=== PATIENT | female | born 1985 | race Caucasian/White ===

== ENCOUNTER 2018-02-01 17:10 | Emergency (ER) | payer BC ==
[2018-02-01 17:37] VITALS: O2SAT 100
--- NOTE | 2018-02-01 17:49 | C.PDOC ---
History Of Present Illness 32 year old female who is [id number] 16-17 weeks presents to the ER after having an episode of suprapubic pain and vaginal bleeding. Patient reports she felt mild suprapubic discomfort this afternoon that lasted for 5 minutes, she went to urinate and noticed she passed bright red blood. Patient brought a picture with her that showed a small amount of coagulated blood; she reports the has been unremarkable until this point. Denies vaginal discharge or any pain since the episode. Time Seen by Provider: 02/01/18 17:22 Chief Complaint (Nursing): Female Genitourinary History Per: Patient History/Exam Limitations: no limitations Onset/Duration Of Symptoms: Mins Current Symptoms Are (Timing): Gone Quality Of Discomfort: Unable To Describe Associated Symptoms: denies: Fever, Chills Alleviating Factors: None Recent travel outside of the [place]: No Abnormal Vaginal Bleeding: Yes Past Medical History Reviewed: Historical Data, Nursing Documentation, Vital Signs Vital Signs: Last Vital Signs Temp 98.1 F 02/01/18 17:17 Pulse 101 H 02/01/18 17:17 Resp 18 02/01/18 17:17 BP 142/84 02/01/18 17:17 Pulse Ox 100 02/01/18 20:13 Family History: States: Unknown Family Hx - Social History Hx Alcohol Use: No Hx Substance Use: No Review Of Systems Constitutional: Negative for: Fever, Chills Cardiovascular: Negative for: Light Headedness Gastrointestinal: Positive for: Abdominal Pain (Suprapubic) Genitourinary: Positive for: Vaginal Bleeding. Negative for: Vaginal Discharge Neurological: Negative for: Dizziness Physical Exam - Physical Exam Appears: Non-toxic, No Acute Distress Skin: Normal Color, Warm, Dry Head: Atraumatic, Normacephalic Eye(s): bilateral: Normal Inspection Oral Mucosa: Moist Chest: Symmetrical, No Tenderness Cardiovascular: Rhythm Regular Respiratory: Normal Breath Sounds, No Rales, No Rhonchi, No Wheezing Gastrointestinal/Abdominal: Soft, No Tenderness, Other (Uterus palpable 3-4cm below umbilicus) Pelvic: Other (Pelvic deferred) Neurological/Psych: Oriented x3, Normal Speech ED Course And Treatment - Laboratory Results Result Diagrams: 02/01/18 18:07 02/01/18 18:07 Lab Interpretation: No Acute Changes Interpretation Of Abnormal: Blood type 0+ O2 Sat by Pulse Oximetry: 100 (Room air) Pulse Ox Interpretation: Normal - CT Scan/US Pelvic ultrasound Other Rad Studies (CT/US): Read By Radiologist, Radiology Report Reviewed CT/US Interpretation: Accession No. : [id number]. Patient Name / ID : LEONOR OLVERA / [id number]. Exam Date : 02/01/2018 18:47:43 ( Approved ). Study Comment : Sex / Age : F / 32Y. Creator : BREA FIGUEROA. Dictator : Maintenance Shop Laborer : Certified Income Tax Preparer : BREA FIGUEROA. Approver2 : Report Date : 02/01/2018 20:00:00. My Comment : . [facility] Division of Radiology. [address] [place] [address]. Tel. no. . . . Patient Name: WADE GALVEZ . Pt. Address: [address] [place] [address]. Rec #: [id number]. [place] [address]: Luis Miguel MARCANO, Scarlet Garcia. Pt Order Location: [facility] : 1985 Female Age: 32 Order #: [id number]. Reason for exam: 16wk preg with vaginal bleeding. . . . . . Ultrasound. . . OB , LIMITED Exam Date: 02/01/18. . This imaging exam was performed at [facility]. EXAM: US Uterus, Limited. . EXAM DATE/TIME: Exam ordered 02/01/2018 5:41 PM. . CLINICAL HISTORY: 32 years old, female; Signs and symptoms; Lmp or gestational age (in weeks): 10/11/2017; Other: Vaginal bleeding; ; Additional info: 16wk preg with. vaginal bleeding. . TECHNIQUE: Real-time ultrasound of the maternal uterus (limited) with image. documentation. . COMPARISON: No relevant prior studies available. . FINDINGS: Fetus: There is a single intrauterine . Cervix: The cervix measures 4 cm in length. It was closed at the time of the. study. Adnexa: The right ovary measures 3.2 x 2.7 x 3 point 6 cm. Blood flow seen. in the right ovary on color Doppler examination. The left ovary measures 2.8 x. 1.7 x 2.5 cm. Blood flow is seen in the left ovary on color Doppler examination. . ultrasound: Biometry. . BPD = [3.2 cm]; Estimated Menstrual Age = [16 w 0 d]; Range = [14 W6D-17 W1D]. HC = [11.98 cm] ; Estimated Menstrual Age = [16 w 0 d]; Range = [14 W5D-17 W1D]. AC = [8.96 cm] ; Estimated Menstrual Age = [15 w 1 d]; Range = [13 W4D-16 W6 D]. FL = [2 cm]; Estimated Menstrual Age = [16 w 0 d]; Range = [14 W4D-17 W2D]. . HC/AC Ratio = [1.34] normal 1.06-1.35. . EFW = 129.6 g plus or -19 g (5 ounces plus or minus one ounce) 13.6 percentile. . Amniotic fluid volume: Qualitatively normal. . Placenta: Posterior asymmetric complete previa. . Presentation: Vertex. . HR =[132 bpm]. . Survey. . Stomach [Normal]. Bladder [ Normal]. 4 extremities [Normal]. Abdominal CORD insertion (normal). 3 vessel cord (normal). . IMPRESSION: 1. Single live intrauterine with an estimated menstrual age of 15. weeks and 6 days plus or minus one week and one day. Expected date of delivery. 07/20/2018. . 2. Posterior placenta with asymmetric complete previa. . 3. incomplete survey due to early gestational age. . Dictated By: Brea Figueroa MD. Dictated Date/Time: 02/01/181999. Signed By: Brea Figueroa MD. Date Signed: 02/01/181999. Transcribed By: [facility]. Transcribe Date/Time: 02/01/181999. CURTBMD/MT Progress Note: Blood work, urinalysis, and pelvic US ordered. Reevaluation Time: 20:13 Reassessment Condition: Unchanged - Physician Consult Information Time Consulting Physician Contacted: 20:13 Physician Contacted: Carol Stoner Outcome Of Conversation: Case discussed with Dr Giordano. Patient to remain off work and avoid sexual intercourse. She should follow up with Dr Stoner next week. Disposition Counseled Patient/Family Regarding: Studies Performed, Diagnosis, Need For Followup - Disposition Referrals: Carol Stoner MD [Staff Provider] - Disposition: HOME/ ROUTINE Disposition Time: 20:29 Condition: STABLE Instructions: Placenta Previa Forms: Stoke (Persian) - Clinical Impression Clinical Impression: Placenta previa - Scribe Statement The provider has reviewed the documentation as recorded by the Scribe Darius Perez All medical record entries made by the Scribe were at my direction and personally dictated by me. I have reviewed the chart and agree that the record accurately reflects my personal performance of the history, physical exam, medical decision making, and the department course for this patient. I have also personally directed, reviewed, and agree with the discharge instructions and disposition.
[2018-02-01 18:12] LABS: BASO # 0.1 K/uL (0.0-0.2); BASO % 0.9 % (0.0-2.0); EOS # 0.1 K/uL (0.0-0.7); EOS % 0.8 % (0.0-4.0); HEMOGLOBIN 11.9 g/dL (11.0-16.0); LYMPH # 2.5 K/uL (1.0-4.3); LYMPH % 21.1 % (20.0-40.0); MEAN CELL VOLUME 82.5 fL (81.0-99.0); MEAN CORPUSCULAR HEMOGLOBIN 27.4 pg (27.0-31.0); MEAN CORPUSCULAR HGB CONC 33.2 g/dL (33.0-37.0); MEAN PLATELET VOLUME 15.9 fL (7.2-11.7); MONO % 8.6 % (0.0-10.0); NEUT % 68.6 % (50.0-75.0); RBC 4.34 Mil/uL (3.80-5.20); RED CELL DISTRIBUTION WIDTH 14.4 % (11.5-14.5); WHITE BLOOD COUNT 11.6 K/uL (4.8-10.8)
[2018-02-01 18:16] LABS: SQUAMOUS EPITHIAL 2 /hpf (0-5); URINE BILIRUBIN NEGATIVE (NEGATIVE); URINE BLOOD 2+ (NEGATIVE); URINE CLARITY Clear (Clear); URINE COLOR Straw (YELLOW); URINE GLUCOSE (UA) NORMAL (Normal); URINE LEUKOCYTE ESTERASE NEG Leu/uL (Negative); URINE PROTEIN NEGATIVE (NEGATIVE); URINE UROBILINOGEN NORMAL mg/dL (0.2-1.0)
[2018-02-01 18:20] LABS: PLATELET COUNT 62 K/uL (130-400)
[2018-02-01 18:29] LABS: ALBUMIN 4.3 g/dL (3.5-5.0); ALT/SGPT 59 U/L (9-52); AST/SGOT 40 U/L (14-36); BLOOD UREA NITROGEN 8 mg/dL (7-17); CALCIUM 9.8 mg/dl (8.6-10.4); GFR AFRICAN-AMERICAN > 60; GFR NON-AFRICAN AMERICAN > 60
--- NOTE | 2018-02-01 20:00 | US ---
EXAM: US Uterus, Limited EXAM DATE/TIME: Exam ordered 02/01/2018 5:41 PM CLINICAL HISTORY: 32 years old, female; Signs and symptoms; Lmp or gestational age (in weeks): 10/11/2017; Other: Vaginal bleeding; ; Additional info: 16wk preg with vaginal bleeding TECHNIQUE: Real-time ultrasound of the maternal uterus (limited) with image documentation. COMPARISON: No relevant prior studies available. FINDINGS: Fetus: There is a single intrauterine . Cervix: The cervix measures 4 cm in length. It was closed at the time of the study. Adnexa: The right ovary measures 3.2 x 2.7 x 3 point 6 cm. Blood flow seen in the right ovary on color Doppler examination. The left ovary measures 2.8 x 1.7 x 2.5 cm. Blood flow is seen in the left ovary on color Doppler examination. ultrasound: Biometry BPD = [3.2 cm]; Estimated Menstrual Age = [16 w 0 d]; Range = [14 W6D-17 W1D] HC = [11.98 cm]; Estimated Menstrual Age = [16 w 0 d]; Range = [14 W5D-17 W1D] AC = [8.96 cm]; Estimated Menstrual Age = [15 w 1 d]; Range = [13 W4D-16 W6 D] FL = [2 cm]; Estimated Menstrual Age = [16 w 0 d]; Range = [14 W4D-17 W2D] HC/AC Ratio = [1.34] normal 1.06-1.35 EFW = 129.6 g plus or -19 g (5 ounces plus or minus one ounce) 13.6 percentile Amniotic fluid volume: Qualitatively normal Placenta: Posterior asymmetric complete previa Presentation: Vertex HR =[132 bpm] Survey Stomach [Normal] Bladder [Normal] 4 extremities [Normal] Abdominal CORD insertion (normal) 3 vessel cord (normal) IMPRESSION: 1. Single live intrauterine with an estimated menstrual age of 15 weeks and 6 days plus or minus one week and one day. Expected date of delivery 07/20/2018 2. Posterior placenta with asymmetric complete previa 3. incomplete survey due to early gestational age.
[2018-02-01 20:52] VITALS: BP 114/70; PULSE 74; RESP 16; TEMP 97.6
== END 2018-02-01 20:51 | disposition home or self-care (01) ==
LOC: C.ER 17:10 → EDSEX 17:10 → C.ER 20:51
DX: O44.02 Complete placenta previa NOS or without hemorrhage, second trimester (principal); Z3A.15 15 weeks gestation of pregnancy

== ENCOUNTER 2018-06-24 12:29 | Emergency (ER) | payer BC ==
[2018-06-24 13:51] LABS: BASO # 0.1 K/uL (0.0-0.2); EOS % 0.5 % (0.0-4.0); HEMOGLOBIN 12.1 g/dL (11.0-16.0); MEAN CORPUSCULAR HGB CONC 33.7 g/dL (33.0-37.0); MONO # 0.6 K/uL (0.0-0.8); NEUT # 6.1 K/uL (1.8-7.0); WHITE BLOOD COUNT 8.9 K/uL (4.8-10.8)
[2018-06-24 14:04] LABS: ALB/GLOB RATIO 1.1 (1.0-2.1); ALBUMIN 3.6 g/dL (3.5-5.0); ALT/SGPT 36 U/L (9-52); AST/SGOT 39 U/L (14-36); BILIRUBIN,DIRECT 0.2 mg/dL (0.0-0.4); BLOOD UREA NITROGEN 8 mg/dL (7-17); CALCIUM 9.4 mg/dl (8.6-10.4); GFR AFRICAN-AMERICAN > 60; GFR NON-AFRICAN AMERICAN > 60; INR 0.9; PROTHROMBIN TIME 9.9 SECONDS (9.7-12.2); URIC ACID 5.3 mg/dL (2.2-7.5)
[2018-06-24 14:09] LABS: BASO % 0.6 % (0.0-2.0); LYMPH # 2.2 K/uL (1.0-4.3); LYMPH % 24.3 % (20.0-40.0); MEAN PLATELET VOLUME 11.4 fL (7.2-11.7); MONO % 6.3 % (0.0-10.0); NEUT % 68.3 % (50.0-75.0); RBC 4.18 Mil/uL (3.80-5.20); RED CELL DISTRIBUTION WIDTH 13.5 % (11.5-14.5)
[2018-06-24 14:10] LABS: MEAN CELL VOLUME 86.1 fL (81.0-99.0)
[2018-06-24 14:20] LABS: CREATININE, RANDOM URINE 35.5 mg/dL
--- NOTE | 2018-06-24 19:36 | C.PDOC ---
History Of Present Illness 33 yo woman , [id number] weeks , admitted by licensed final expense agents for dropping platelet counts and high blood pressure in the office.after admission showed normal blood pressures, he patient has a history of ITP, first diagnosed 2 years before the , never required treatment before. She has been asymptomatic with her baseline counts around 50k, which has dropped now to 30K. The work up for preeclampsia and HELLP syndrome have been normal/negative. The patient is completely asymptomatic, no bleeding, headaches, dysuria T Past Medical History Family History: States: Unknown Family Hx - Social History Hx Alcohol Use: No Hx Substance Use: No ED Course And Treatment - Laboratory Results Result Diagrams: 06/24/18 13:46 06/24/18 13:46 Medical Decision Making Medical Decision Makin yo woman 36 weeks , with a hostory of ITP, admitted for dropping platelet counts and remains asymptomatic. Will start steroids, Prednisone 20md BID and recheck counts in 5-6 days. If counts increase satisfactorily, will continue and the patient can admitted the day of the delivery. If the counts remain lower than 80K, she needs to be admitted the night before for iv steroids and platelet transfusion
--- NOTE | 2018-06-25 12:51 | OBHP ---
Datetime: 06/24/2018 20:16 IP Adm Impression: , intrauterine IP Admit Plan: Observation/Evaluation Admit Comment, IP Provider: 33 y/o at 36 + wks presents from the PMD's office with elevated BP in the office. Pt has no c/o ctx, Vb or LOF. + FM. Pt has no c/o CP, SOB, RUQ , or visual changes. Pt givens a h/o ITP. BP- as documented. Labd: AST slightly elevated. PLTS- 31. Dr Stoner was called at this time and Dr Stoner took over the management from this time. Pt was evaluated by Dr Stoner and hematology called. Please refer to Dr Stoner and Hematology consult for further management. Pelvic Type - PN: Adequate Extremities - PN: Normal Abdomen - PN: Normal Back - PN: Normal Breast - PN: Normal Lungs - PN: Normal Heart - PN: Normal Thyroid - PN: Normal Neurologic - PN: Normal HEENT - PN: Normal General - PN: Normal EGA AdmitDate IP: 36.5 IP Chief Complaint: Signs/Symptoms Gestational HTN NICHD Variability Prov Fetus A: Moderate 6-25bpm NICHD Accel Fetus A IP Provider: [id number] NICHD Decel Fetus A IP Provider: None Genitourinary Exam: Normal DTRs - PN: Normal
[2018-06-25 16:50] VITALS: BP 129/70; PULSE 75
== END 2018-06-24 19:10 | disposition home or self-care (01) ==
LOC: C.EROB 12:29
DX: O26.893 Other specified pregnancy related conditions, third trimester (principal); Z3A.36 36 weeks gestation of pregnancy; R03.0 Elevated blood-pressure reading, without diagnosis of hypertension; D69.3 Immune thrombocytopenic purpura

== ENCOUNTER 2018-06-30 16:30 | Inpatient (IN) | payer BC ==
[2018-06-30 17:43] LABS: SQUAMOUS EPITHIAL 5 /hpf (0-5); URINE BACTERIA OCC (<OCC); URINE BILIRUBIN NEGATIVE (NEGATIVE); URINE BLOOD NEGATIVE (NEGATIVE); URINE CLARITY Clear (Clear); URINE COLOR Colorless (YELLOW); URINE GLUCOSE (UA) NORMAL (Normal); URINE LEUKOCYTE ESTERASE NEG Leu/uL (Negative); URINE PROTEIN NEGATIVE (NEGATIVE); URINE UROBILINOGEN NORMAL mg/dL (0.2-1.0)
--- NOTE | 2018-06-30 17:57 | CP.PCM.HP ---
History of Present Illness - History of Present Illness History of Present Illness: OB H&P PGY-[address] Sampson service Patient is a 33 year old female, @ 37 weeks that was sent from Bid Clerk/oncologist Dr. Racheal Quintero office for low platelets level results. Patient was seen in the hospital on 06/24/2018 due to high blood pressure noted in BUSINESS INTERN Doctor Cherise Stoner office. Platelets during that time were 31,000 uL Platelet and was given prednisone 20mg one tablet twice a day, which she took since Saturday until this morning. At Dr. Quintero office patient's platelet level was 4,000 uL and was sent from office to the hospital for further evaluation. Patient has no complains. Patient denies any complications in . Patient denies having any contractions. Patient denies any vaginal bleeding or rupture of membrane. Patient has movement happening 4 to 5 times a day. Patient denies any changes in her since last time seen in the hospital. Patient denies fever, chills, chest pain, shortness of breath, bruising, abnormal bleeding, abdominal pain, nausea, vomiting, diarrhea or constipation. 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, denies alcohol, works as a banker ROS: as noted in HPI Present on Admission - Present on Admission Any Indicators Present on Admission: No History of DVT/PE: No History of Uncontrolled Diabetes: No Urinary Catheter: No Decubitus Ulcer Present: No Review of Systems - Constitutional Constitutional: absent: Chills, Fever, Headache - EENT Eyes: absent: Change in Vision Nose/Mouth/Throat: absent: Bleeding Gums - Cardiovascular Cardiovascular: absent: Chest Pain, Edema, Leg Edema, Lightheadedness - Respiratory Respiratory: absent: Dyspnea - Gastrointestinal Gastrointestinal: absent: Abdominal Pain, Diarrhea, Nausea, Vomiting - Musculoskeletal Musculoskeletal: absent: Back Pain - Integumentary Integumentary: absent: Bleeding Lesions - Neurological Neurological: absent: Headaches, Syncope, Weakness - Hematologic/Lymphatic Hematologic: absent: Easy Bleeding, Easy Bruising Past Patient History - Past Social History Smoking Status: Never Smoked - PSYCHIATRIC Hx Substance Use: No - SURGICAL HISTORY Hx Surgeries: No - ANESTHESIA Hx Anesthesia: No Meds Allergies/Adverse Reactions: Allergies Allergy/AdvReac Type Severity Reaction Status Date / Time No Known Allergies Allergy Verified 02/01/18 17:19 Physical Exam - Constitutional Appears: Non-toxic, No Acute Distress - Head Exam Head Exam: ATRAUMATIC, NORMAL INSPECTION, NORMOCEPHALIC - Eye Exam Eye Exam: EOMI, Normal appearance - ENT Exam ENT Exam: Mucous Membranes Moist, Normal Exam - Neck Exam Neck exam: Positive for: Normal Inspection - Respiratory Exam Respiratory Exam: Clear to Auscultation Bilateral, NORMAL BREATHING PATTERN. absent: Rales, Rhonchi, Wheezes - Cardiovascular Exam Cardiovascular Exam: Tachycardia, REGULAR RHYTHM, +S1, +S2 - GI/Abdominal Exam GI & Abdominal Exam: Normal Bowel Sounds - Extremities Exam Extremities exam: Positive for: full ROM, normal inspection. Negative for: pedal edema, tenderness - Back Exam Back exam: NORMAL INSPECTION - Neurological Exam Neurological exam: Alert - Psychiatric Exam Psychiatric exam: Normal Affect, Normal Mood - Skin Skin Exam: Intact, Normal Color, Warm Assessment & Plan - Assessment and Plan (Free Text) Plan: 1. Thrombocytopenia -06/30/2018 Platelets level @ Heme/Onc office: 4, 000 - Hematology/Oncology Consult Dr Racheal Quintero - type and Screen - ordered - Follow up Heme/Onc recs on platelet transfusion - Start on Regular diet 2. Hx of High blood pressure in - At Dr. Quintero office: Work up for HELLP/eclampsia is negative - Check vitals Q4hrs -current BP ranges from 133/81- 143/90 - check Monitor Cont - 06/30/2018 Urinalysis - Urine protein negative Plan was discussed with MD Griffin Brice, PGY-1 - Date & Time Date: 06/30/18 Time: 18:10
[2018-06-30] MEDS ORDERED: MethylPREDNISolone 40 mg Vial IVP ONE (19:45)
--- NOTE | 2018-06-30 19:56 | CP.PCM.CON ---
History of Present Illness - History of Present Illness History of Present Illness: 33 yo woman 36 weeks gestation, admitted from the office when she was found to have low platelet counts. The patient was diagnosed with ITP at the beginning of her , when she was found to have low platelet counts. The patient says that she was found to have low platelet counts 2 years ago and had an extensive work up and was told that it was consistent with ITP. she has not had any episodes of easy bleeding or bruising. She gives a history of her sister having the similar problems with her platelet count. The patient had work up for TTP/HELLP/Eclampsia showing normal LFTs, normal coags, LDH and fibrinogen levels, no HTN or proteinuria Past Patient History - Past Social History Smoking Status: Never Smoked - PSYCHIATRIC Hx Substance Use: No - SURGICAL HISTORY Hx Surgeries: No - ANESTHESIA Hx Anesthesia: No Meds Allergies/Adverse Reactions: Allergies Allergy/AdvReac Type Severity Reaction Status Date / Time No Known Allergies Allergy Verified 02/01/18 17:19 - Medications Medications: Current Medications Famotidine (Pepcid) 20 mg IVP Q12 KAYLIE Results - Labs Labs: Laboratory Results - last 24 hr 06/30/18 06/30/18 17:26 18:26 Urine Color Colorless Urine Clarity Clear Urine pH 7.0 Ur Specific [place] 1.003 Urine Protein Negative Urine Glucose (UA) Normal Urine Ketones Negative Urine Blood Negative Urine Nitrate Negative Urine Bilirubin Negative Urine Urobilinogen Normal Ur Leukocyte Esterase Neg Urine WBC (Auto) < 1 Urine RBC (Auto) < 1 Ur Squamous Epith Cells 5 Ur Transition Epith Cell < 1 Urine Bacteria Occ H Blood Type O POSITIVE Antibody Screen Negative Assessment & Plan (1) Thrombocytopenia affecting , antepartum Assessment and Plan: 33 yo woman with a pre diagnosis of ITP as per patient, decreasing counts in the last trimester with poor response to steroids,normal WBC abd RBC counts, asymptomatic, will need platelet transfusion Status: Acute
[2018-06-30 19:57] LABS: BASO # 0.1 K/uL (0.0-0.2); BASO % 0.7 % (0.0-2.0); HEMOGLOBIN 12.3 g/dL (11.0-16.0); LYMPH # 2.4 K/uL (1.0-4.3); LYMPH % 16.1 % (20.0-40.0); MEAN CELL VOLUME 86.9 fL (81.0-99.0); MEAN CORPUSCULAR HEMOGLOBIN 28.7 pg (27.0-31.0); MEAN PLATELET VOLUME 12.3 fL (7.2-11.7); MONO % 7.1 % (0.0-10.0); NEUT # 11.3 K/uL (1.8-7.0); NEUT % 76.1 % (50.0-75.0); NRBC % 0.3 % (0.0-2.0); RBC 4.29 Mil/uL (3.80-5.20); RED CELL DISTRIBUTION WIDTH 13.4 % (11.5-14.5)
[2018-06-30 20:04] LABS: WHITE BLOOD COUNT 14.8 K/uL (4.8-10.8)
--- NOTE | 2018-06-30 20:14 | OBHP ---
Datetime: 06/30/2018 19:55 IP Chief Complaint Other: thrombocytopenia Admit Comment, IP Provider: Patient is a 33 year old female, edc 07/17/18 by 1st trim us @ 37 weeks that was sent from Senior Manufacturing Test Engineer/oncologist Dr. Racheal Quintero office for low platelets level results. Patient was seen in the hospital on 06/24/2018 due to high blood pressure noted in ELECTRONICS HARDWARE DESIGN ENGINEER D geovany Scott office. Platelets during that time were 31,000 uL Platelet and was given prednison e 20mg one tablet twice a day, which she took since last Saturday(past 5days) until this morning. At Dr. Quintero office today patient's platelet level was 4,000 uL. Pt was sent from office to the h ospital for further evaluation and management. Patient has no complains. Patient denies any complicat ions in . Patient denies having any contractions. Patient denies any vaginal bleeding or rup ture of membrane. Patient has movement happening 4 to 5 times a day. Patient denies any changes in her since last time seen in the hospital. Patient denies fever, chills, chest pain, nena rtness of breath, bruising, abnormal bleeding, abdominal pain, nausea, vomiting, diarrhea or constipa tion. 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, denies alcohol, works as a banker ROS: as noted in HPI Present on Admission History of Uncontrolled Diabetes: No Urinary Catheter: No Decubitus Ulcer Present: No Review of Systems - Constitutional Constitutional: absent: Chills, Fever, Headache - EENT Eyes: absent: Change in Vision Nose/Mouth/Throat: absent: Bleeding Gums - Cardiovascular Cardiovascular: absent: Chest Pain, Edema, Leg Edema, Lightheadedness - Respiratory Respiratory: absent: Dyspnea - Gastrointestinal Gastrointestinal: absent: Abdominal Pain, Diarrhea, Nausea, Vomiting - Musculoskeletal Musculoskeletal: absent: Back Pain - Integumentary Integumentary: absent: Bleeding Lesions - Neurological Neurological: absent: Headaches, Syncope, Weakness - Hematologic/Lymphatic Hematologic: absent: Easy Bleeding, Easy Bruising Past Patient History - Past Social History Smoking Status: Never Smoked - PSYCHIATRIC Hx Substance Use: No - SURGICAL HISTORY Hx Surgeries: No - ANESTHESIA Hx Anesthesia: No Meds No Known [id number]/24/18 17:19 Physical Exam - Constitutional Appears: Non-toxic, No Acute Distress - Head Exam Head Exam: ATRAUMATIC, NORMAL INSPECTION, NORMOCEPHALIC - Eye Exam Eye Exam: EOMI, Normal appearance - ENT Exam ENT Exam: Mucous Membranes Moist, Normal Exam - Neck Exam Neck exam: Positive for: Normal Inspection - Respiratory Exam Respiratory Exam: Clear to Auscultation Bilateral, NORMAL BREATHING PATTERN. absent: Rales, Rhonc hi, Wheezes - Cardiovascular Exam Cardiovascular Exam: Tachycardia, REGULAR RHYTHM, +S1, +S2 - GI/Abdominal Exam GI _ Abdominal Exam: Normal Bowel Sounds - Extremities Exam Extremities exam: Positive for: full ROM, normal inspection. Negative for: pedal edema, tendernes s - Back Exam Back exam: NORMAL INSPECTION - Neurological Exam Neurological exam: Alert - Psychiatric Exam Psychiatric exam: Normal Affect, Normal Mood - Skin Skin Exam: Intact, Normal Color, Warm Assessment _ Plan - Assessment and Plan (Free Text) Plan: 1. Thrombocytopenia -06/30/2018 Platelets level @ Heme/Onc office: 4, 000 - Hematology/Oncology Consult Dr Racheal Quintero - type and Screen - ordered - Follow up Heme/Onc recs on platelet transfusion - Start on Regular diet 2. Hx of High blood pressure in - At Dr. Quintero office: Work up for HELLP/eclampsia is negative - Check vitals Q4hrs -current BP ranges from 133/81- 143/90 - check Monitor Cont - 06/30/2018 Urinalysis - Urine protein negative Plan was discussed with MD Griffin Brice, PGY-1 ob attending addendum: pt seen _ examined by me w/ dr farrar. agree w/ above assessment and plan with following additions and modifications. pt denies h/a, scotomata, ruq/midepigastric pain, n/v, blurred va. she reports good fm. denies cramping/ctxs. pt d/w dr hinds for solumedrol to be followed by platelt transfusion. cbc prior to transfusion and repeat in am cmp, ldh now and in am. dr scott plans for induciton after platlet management. Pelvic Type - PN: Not Done Extremities - PN: Normal Abdomen - PN: Normal Lungs - PN: Normal Heart - PN: Normal Neurologic - PN: Normal HEENT - PN: Normal General - PN: Normal IP Chief Complaint: Other Datetime: 06/24/2018 20:16 EGA AdmitDate IP: 36.5
--- NOTE | 2018-06-30 20:19 | OBADHP ---
Datetime: 06/30/2018 19:55 IP Chief Complaint Other: thrombocytopenia IP Admit Plan Other: Admit to [facility] Admit Comment, IP Provider: Patient is a 33 year old female, edc 07/17/18 by 1st trim us @ 37 weeks that was sent from [employer] [facility]ist/oncologist Dr. Racheal Quintero office for low platelets level results. Patient was seen in the hospital on 06/24/2018 due to high blood pressure noted in [employer] [facility] geovany Scott office. Platelets during that time were 31,000 uL Platelet and was given prednison e 20mg one tablet twice a day, which she took since last Saturday(past 5days) until this morning. At Dr. Quintero office today patient's platelet level was 4,000 uL. Pt was sent from office to the ospital for further evaluation and management. Patient has no complains. Patient denies any complicat ions in . Patient denies having any contractions. Patient denies any vaginal bleeding or rup ture of membrane. Patient has movement happening 4 to 5 times a day. Patient denies any changes in her since last time seen in the hospital. Patient denies fever, chills, chest pain, nena rtness of breath, bruising, abnormal bleeding, abdominal pain, nausea, vomiting, diarrhea or constipa tion. Patient denies headaches, dizziness, changes in vision or hearing, or swelling or pain in her l egs OBGYN: Carol Scott Heme/Onc: Dr Racheal Quintero PMhx: Idiopathic thrombocytopenic purpura (ITP) Shx: denies All: denies Meds: vitafol 1 tab a day , [place] 3, Prednisone 20mg PO twice a day GynHx: LMP (10/11/2017), age of menarche 14 years old, 30 days cycle, 3-4 days menstruation period , denies STD history, no abnormal Pap smear in the past, no cervical or machine ceramic coater history Famhx: ITP (oldest sister) Social hx: Denies smoking, denies alcohol, works as a banker ROS: as noted in HPI Present on Admission History of Uncontrolled Diabetes: No Urinary Catheter: No Decubitus Ulcer Present: No Review of Systems - Constitutional Constitutional: absent: Chills, Fever, Headache - EENT Eyes: absent: Change in Vision Nose/Mouth/Throat: absent: Bleeding Gums - Cardiovascular Cardiovascular: absent: Chest Pain, Edema, Leg Edema, Lightheadedness - Respiratory Respiratory: absent: Dyspnea - Gastrointestinal Gastrointestinal: absent: Abdominal Pain, Diarrhea, Nausea, Vomiting - Musculoskeletal Musculoskeletal: absent: Back Pain - Integumentary Integumentary: absent: Bleeding Lesions - Neurological Neurological: absent: Headaches, Syncope, Weakness - Hematologic/Lymphatic Hematologic: absent: Easy Bleeding, Easy Bruising Past Patient History - Past Social History Smoking Status: Never Smoked - PSYCHIATRIC Hx Substance Use: No - SURGICAL HISTORY Hx Surgeries: No - ANESTHESIA Hx Anesthesia: No Meds No Known [id number]/24/18 17:19 Physical Exam - Constitutional Appears: Non-toxic, No Acute Distress - Head Exam Head Exam: ATRAUMATIC, NORMAL INSPECTION, NORMOCEPHALIC - Eye Exam Eye Exam: EOMI, Normal appearance - ENT Exam ENT Exam: Mucous Membranes Moist, Normal Exam - Neck Exam Neck exam: Positive for: Normal Inspection - Respiratory Exam Respiratory Exam: Clear to Auscultation Bilateral, NORMAL BREATHING PATTERN. absent: Rales, Rhonc hi, Wheezes - Cardiovascular Exam Cardiovascular Exam: Tachycardia, REGULAR RHYTHM, +S1, +S2 - GI/Abdominal Exam GI _ Abdominal Exam: Normal Bowel Sounds - Extremities Exam Extremities exam: Positive for: full ROM, normal inspection. Negative for: pedal edema, tendernes s - Back Exam Back exam: NORMAL INSPECTION - Neurological Exam Neurological exam: Alert - Psychiatric Exam Psychiatric exam: Normal Affect, Normal Mood - Skin Skin Exam: Intact, Normal Color, Warm Assessment _ Plan - Assessment and Plan (Free Text) Plan: 1. Thrombocytopenia -06/30/2018 Platelets level @ Heme/Onc office: 4, 000 - Hematology/Oncology Consult Dr Racheal Quintero - type and Screen - ordered - Follow up Heme/Onc recs on platelet transfusion - Start on Regular diet 2. Hx of High blood pressure in - At Dr. Quintero office: Work up for HELLP/eclampsia is negative - Check vitals Q4hrs -current BP ranges from 133/81- 143/90 - check Monitor Cont - 06/30/2018 Urinalysis - Urine protein negative Plan was discussed with MD Griffin Brice, PGY-1 ob attending addendum: pt seen _ examined by me w/ dr farrar. agree w/ above assessment and plan with following additions and modifications. pt denies h/a, scotomata, ruq/midepigastric pain, n/v, blurred va. she reports good fm. denies cramping/ctxs. pt d/w dr hinds for solumedrol to be followed by platelt transfusion. cbc prior to transfusion and repeat in am cmp, ldh now and in am. dr scott plans for induciton after platlet management. plan of care d/w pt. Pelvic Type - PN: Not Done Extremities - PN: Normal Abdomen - PN: Normal Lungs - PN: Normal Heart - PN: Normal Neurologic - PN: Normal HEENT - PN: Normal General - PN: Normal Presentation-Admit: Vertex FHR - Baseline A Provider: 130 Vital Signs Provider: Reviewed Vital Signs Provider Details: 110-160/ 70-102 IP Chief Complaint: Other NICHD Variability Prov Fetus A: Moderate 6-25bpm NICHD Accel Fetus A IP Provider: [id number] FHR Category Provider Fetus A: Category I NICHD Decel Fetus A IP Provider: None Genitourinary Exam: Not Done EGA AdmitDate IP: 37.4 IP Adm Impression: Term, intrauterine IP Admit Plan: Admit to unit Datetime: 06/24/2018 20:16 Back - PN: Normal Breast - PN: Normal Thyroid - PN: Normal DTRs - PN: Normal
[2018-06-30 20:23] LABS: ALB/GLOB RATIO 1.2 (1.0-2.1); ALBUMIN 3.7 g/dL (3.5-5.0); ALT/SGPT 28 U/L (9-52); AST/SGOT 30 U/L (14-36); BLOOD UREA NITROGEN 9 mg/dL (7-17); CALCIUM 9.4 mg/dl (8.6-10.4); GFR AFRICAN-AMERICAN > 60; GFR NON-AFRICAN AMERICAN > 60
[2018-06-30] MEDS ORDERED: DiphenhydrAMINE 50 mg/ml Inj IVP STA (23:31)
[2018-07-01 08:10] LABS: MEAN CELL VOLUME 86.4 fL (81.0-99.0); MEAN CORPUSCULAR HGB CONC 33.5 g/dL (33.0-37.0); MEAN PLATELET VOLUME 14.6 fL (7.2-11.7); RBC 4.13 Mil/uL (3.80-5.20); RED CELL DISTRIBUTION WIDTH 13.5 % (11.5-14.5); WHITE BLOOD COUNT 13.8 K/uL (4.8-10.8)
[2018-07-01 10:51] VITALS: RESP 18
--- NOTE | 2018-07-01 12:17 | OBPN ---
Datetime: 07/01/2018 11:57 IP Progress Impression: Reassuring heart rate; Gest. HTN/PreEclampsia/Eclampsia IP Procedures: Ultrasound; Biophysical Profile IP Progress Plan: Continue present management Membranes, Provider: Intact Contraction Comments Provider: Ocassional FHR - Baseline A Provider: 130's Gestation - Est Wks by US: 37.5 weeks Presentation-Admit: Vertex IP Progress Note Comment: 33 yo female with an IUP at 37.5 weeks HD # 2 Admitted with Dx of Gestational Hypertension/Asymptomatic and Hx of ITP/ Platelets very low on adm ission 16 Platelets 25 this AM after a transfusion last evening Hematology on Board NST Reactive, and will do Q shift. Admits to adequate FM. Denies LOF or vaginal bleeding or spotting and no pains or contractions Will order a complete OB US with BPP this AM BP's WNL 120's-130's/70's-80's for most of the time although up to 140-150/90-100 at times last P M CPM Vital Signs Provider: Reviewed NICHD Accel Fetus A IP Provider: 10X10 FHR Category Provider Fetus A: Category I NICHD Variability Prov Fetus A: Moderate 6-25bpm NICHD Decel Fetus A IP Provider: None Datetime: 06/30/2018 19:55 Vital Signs Provider Details: 110-160/ 70-102
--- NOTE | 2018-07-01 13:57 | US ---
HISTORY: Gestational Hypertension, ITP ; LMP 10/30/2017 PROCEDURE: Transabdominal scanning COMPARISON: 02/01/2018 TECHNIQUE: Transabdominal scanning of the maternal pelvis and a 2nd/ 3rd trimester with image documentation FINDINGS: Fetus: Single intrauterine gestation heart rate: Present at 154 beats per minute presentation: Vertex Placenta: Posteriorwithout previa or abruption Amniotic fluid : Normal appearing: Amniotic fluid index 16.03 cm anatomy: Limited due to late gestation. biometrics: Gestational age by ultrasound: 36 weeks 6 days 2 weeks 4 days Estimated weight: 2991 g 448g 0.70 g Maternal factors: Uterus: Unremarkable. No myometrial masses Cervix:3.38 cm length Free fluid: None Biophysical profile: Breathin Gross body movements: 2 Limb tone: 2 Amniotic Fluid: 2 Total biophysical profile: 06/18 IMPRESSION: Single intrauterine gestation with normal cardiac activity. presentation - cephalic. No previa . Biophysical profile 06/18
[2018-07-01 16:09] VITALS: BP 98/55; PULSE 90; TEMP 97.1; O2SAT 97
[2018-07-01] MEDS ORDERED: DiphenhydrAMINE 50 mg/ml Inj IVP STA (17:40)
--- NOTE | 2018-07-01 20:06 | CP.PCM.PN ---
Subjective - Date & Time of Evaluation Date of Evaluation: 07/01/18 Time of Evaluation: 20:03 - Subjective Subjective: The patient remains stable, asymptomatic, without complaints. Had reaction to platelets, with poor response to transfusion. Objective - Vital Signs/Intake and Output Vital Signs (last 24 hours): Temp Pulse Resp BP Pulse Ox 97.1 F L 90 18 98/55 L 97 07/01/18 16:00 07/01/18 16:00 07/01/18 16:00 07/01/18 16:00 07/01/18 16:00 - Medications Medications: Current Medications Famotidine (Pepcid) 20 mg IVP Q12 [facility] Last Admin: 07/01/18 11:00 Dose: 20 mg Methylprednisolone (Solu-Medrol) 40 mg IVP Q12 KAYLIE - Labs Labs: 07/01/18 07:53 06/30/18 19:49 Assessment and Plan (1) Thrombocytopenia affecting , antepartum Assessment & Plan: Chronic thrombocytopenia, gradually decreasing counts, poor response to iv steroids and platelet transfusion. The patient has no bleeding, bruising Will discuss with OB regarding move to high risk site if counts don't recover. Replace Vitamin B12. Check AM labs post transfusion Status: Acute
[2018-07-01] MEDS ORDERED: MethylPREDNISolone 40 mg Vial IVP SCH (22:00)
--- NOTE | 2018-07-01 22:23 | OBDCSUM ---
Datetime: 06/24/2018 19:10 Disch Instr Activity: Bedrest Discharge Instructions, Provider: Specific instructions as noted Follow up in weeks, Provider: AM Contraception discussed, Prov: Yes Disch Activity Restrictions: No exercising; No lifting; No driving; Minimize stair-climbing; No sexu al activity; Nothing in vagina - [place], tampons, douche Discharge Comment, Provider: Dr Stoner instructed the patient to go home tonite and to present to [facility] first thing in AM to be admitted under ZOHREH Hubbard who would continue with [facility] care. Pt received her last sanchez of Dexamethasone and was discharge home in Stable and Satisfactory condit ion Discharge Diagnosis Prov Other: 37.5 weeks with Hx of ITP and Gestational Hypertension Contraception after Delivery: Undecided
== END 2018-07-01 22:46 | disposition home or self-care (01) | DRG 782 ==
LOC: C.EROB 16:30 → C.4D 17:27 → C.4M 07-01 01:54
PROVIDERS: ADMIT Obstetrics & Gynecology; ATTEND Obstetrics & Gynecology
PROC: 30233R1 Transfusion of Nonautologous Platelets into Peripheral Vein, Percutaneous Approach (ICD-10-PCS; principal; 2018-06-30)
DX: O99.113 Other diseases of the blood and blood-forming organs and certain disorders involving the immune mechanism complicating pregnancy, third trimester (principal); D69.3 Immune thrombocytopenic purpura; Z3A.37 37 weeks gestation of pregnancy; O13.3 Gestational [pregnancy-induced] hypertension without significant proteinuria, third trimester